=== PATIENT | male | born 1960 | race Caucasian/White ===

== ENCOUNTER 2018-10-15 12:30 | Day surgery (SDC) | payer MEDICARE ==
[~2018-10-15] VITALS: Ht 208.3 cm; Wt 106.0 kg
[2018-10-15] VITALS (8 sets, daily range): BP systolic 91–133; BP diastolic 61–94; PULSE 85–94; TEMP 98.1
[2018-10-15] MEDS ORDERED: ULTRAM 50MG TAB50 MG PO (13:07)
[2018-10-15] MEDS ORDERED: JANUMXR100-1000 PO (13:08)
[2018-10-15] MEDS ORDERED: CLEOCIN HC150 MG/CAP PO (13:10)
[2018-10-15] MEDS ORDERED: RIFADIN300 MG PO (13:11)
[2018-10-15] MEDS ORDERED: LYRICA200 MG PO (13:12)
[2018-10-15] MEDS ORDERED: NORVASC2.5 MG PO (13:13)
[2018-10-15 13:17] LABS: CALCIUM 9.5 mg/dL (8.4-10.2); CREATININE, serum 0.74 (0.66-1.25)
[2018-10-15] MEDS ORDERED: CRESTOR20 MG PO (13:17)
[2018-10-15] MEDS ORDERED: GLUCOTROL10 MG PO (13:17)
[2018-10-15] MEDS ORDERED: ASPIRIN E.C. 8181 MG PO (13:21)
[2018-10-15 13:22] LABS: PROTHROMBIN TIME 12.2 SECONDS (9.7-12.8)
--- NOTE | 2018-10-15 14:06 | NUR ---
SEE MERGE DOCUMENTATION FOR MEDICATION ADMINISTRATION TIMES AND INTRA/POST PROCEDURE SEDATION ASSESSMENTS. PT REQUESTS NO SEDATION FOR PROCEDURE; MD AWARE.
--- NOTE | 2018-10-15 14:25 | NUR ---
Pt baseline SpO2 readings 86-89% on RA. Pt with hx of COPD. MD notified; ok with saturations and request pt remain on RA for RHC. Pt showing no s/sx of distress; will continue to monitor.
[2018-10-15] MEDS ORDERED: LASIX 20MG TABL20 MG PO (15:07)
--- NOTE | 2018-10-15 15:20 | NUR ---
pt arrived via bed from labor relations officer to eu 15, pt is awake and alert, no sedation given, no c/o pain, pt is slightly anxious states is ready to go home, reviewed activity with pt and Dr orders on bedrest, keeping right leg straight, small pressure dressing over right vein groin site, area is soft, no signs of bleeding, call light in reach, takes sips of water. 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
[2018-10-15 15:23] LABS: HEMATOCRIT 54.5 % (42.0-52.0); HEMOGLOBIN 17.6 g/dl (13.5-18.0); MEAN CELL VOLUME 91 fl (80.0-100.0); MEAN CORPUSCULAR HEMOGLOBIN 30 pg (27.0-31.0); MEAN CORPUSCULAR HGB CONC 32 g/dl (33.0-37.0); RED BLOOD COUNT 5.96 M/mm3 (4.20-5.60)
[2018-10-15 15:24] LABS: MEAN PLATELET VOLUME 11.8 fl (7.4-10.4); PLATELET COUNT 190 K/mm3 (130-400)
--- NOTE | 2018-10-15 16:00 | NUR ---
Dr Pugh into see pt, brought disk of procedure and results of procedure for pt to take to [facility] when he gets his referral. pt ordered lunch. groin site remains the same, soft no signs of bleeding
--- NOTE | 2018-10-15 16:30 | NUR ---
pt sat on side of bed, tolerated well, using b/r in room, pt con't to be up in room, then sat on side of bed, is restless at times and states is eager to go home and need to smoke, family is coming for pt at discharge
--- NOTE | 2018-10-15 17:12 | NUR ---
reviewed discharge inst. with pt on appt made in October, also new med of lasix to be picked up, pt states has been on lasix before. reviewed activity with pt on groin site and on radial site, can shower tomorrow. also has disk and report from Dr Pugh
--- NOTE | 2018-10-15 17:45 | NUR ---
pt took off monitoring equipment. up in room, States is not coming to get him because she is sick and running a fever, Dr Álvarez called on pt driving and stated it is OK due to the pt had no sedation. Released air, 3cc, waited 5 min. released another 3cc, waited 5 min, then band taken off with no bleeding, area dressed with 2x2, tegrederm and coban, pt instructed to shower tomorrow and take off small pressure dressing then, iv d'cd intact
--- NOTE | 2018-10-15 18:00 | NUR ---
Pt up in room dressed, walked pt to car with discharge papers
== END 2018-10-15 18:00 | disposition home or self-care (01) ==
LOC: COL.CAR 12:30
PROVIDERS: Internal Medicine Cardiovascular Disease
DX: I25.10 Atherosclerotic heart disease of native coronary artery without angina pectoris (principal); E66.9 Obesity, unspecified; I10 Essential (primary) hypertension; E78.5 Hyperlipidemia, unspecified; J44.9 Chronic obstructive pulmonary disease, unspecified; I27.20 Pulmonary hypertension, unspecified; F17.210 Nicotine dependence, cigarettes, uncomplicated; Z79.82 Long term (current) use of aspirin; Z88.2 Allergy status to sulfonamides
CPT/HCPCS: J1644; Q9967

== ENCOUNTER → 2018-12-31 | Outpatient (CLI) | payer BC ==
[~2018-12-31] MED LIST: ASPIRIN E.C. 8181 MG PO; CLEOCIN HC150 MG/CAP PO; CRESTOR20 MG PO; GLUCOTROL10 MG PO; JANUMXR100-1000 PO; LASIX 20MG TABL20 MG PO; LYRICA200 MG PO; NORVASC2.5 MG PO; RIFADIN300 MG PO; ULTRAM 50MG TAB50 MG PO
[2018-12-31 18:05] LABS: MEAN CELL VOLUME 94 fl (80.0-100.0); MEAN CORPUSCULAR HGB CONC 34 g/dl (33.0-37.0); MEAN PLATELET VOLUME 10.7 fl (7.4-10.4); PLATELET COUNT 225 K/mm3 (130-400); RED BLOOD COUNT 5.83 M/mm3 (4.20-5.60); REDCELL DISTRIBUTION WIDTH-CV 16.6 % (11.5-14.5)
[2018-12-31 18:12] LABS: HEMATOCRIT 54.5 % (42.0-52.0); HEMOGLOBIN 18.6 g/dl (13.5-18.0); MEAN CORPUSCULAR HEMOGLOBIN 32 pg (27.0-31.0)
[2018-12-31 18:13] LABS: ALBUMIN 4.4 gm/dL (3.5-5.0); BILIRUBIN,TOTAL 0.4 mg/dL (0.0-1.0); CALCIUM 9.5 mg/dL (8.4-10.2); CREATININE, serum 1.05 (0.66-1.25); POTASSIUM 4.9 mmol/L (3.4-5.0); TOTAL PROTEIN 7.7 gm/dL (6.4-8.2)
[2018-12-31 18:24] LABS: TROPONIN-I 0.013 ng/mL (0.000-0.035)
[2019-01-01 02:28] LABS: BASO # 0.1 (0.0-0.2); BASO % 0.8 % (0.0-2.0); EOS # 0.2 (0.0-0.7); EOS % 1.8 % (0-4.0); GRAN # 5.4 (1.4-6.5); GRAN % 61.7 % (42.2-75.2); LYMPH # 2.3 (1.2-3.4); LYMPH % 26.3 % (20.0-51.0); MONO # 0.8 (0.1-0.6); MONO % 8.9 % (1.7-9.3)
== END ==
LOC: COL.LAB 17:21
PROVIDERS: Family Medicine
DX: R07.89 Other chest pain (principal)

== ENCOUNTER 2019-07-22 18:12 | Emergency (ER) | payer BC ==
[~2019-07-22] VITALS: Ht 177.8 cm; Wt 106.8 kg
[2019-07-22 18:15] VITALS: TEMP 97.8
[2019-07-22 19:12] LABS: BASO # 0.1 (0.0-0.2); BASO % 0.7 % (0.0-2.0); EOS # 0.2 (0.0-0.7); EOS % 1.6 % (0-4.0); GRAN # 7.4 (1.4-6.5); GRAN % 69.2 % (42.2-75.2); HEMOGLOBIN 17.2 g/dl (13.5-18.0); LYMPH # 2.1 (1.2-3.4); LYMPH % 19.6 % (20.0-51.0); MEAN CELL VOLUME 93 fl (80.0-100.0); MEAN CORPUSCULAR HEMOGLOBIN 30 pg (27.0-31.0); MEAN CORPUSCULAR HGB CONC 33 g/dl (33.0-37.0); MEAN PLATELET VOLUME 11.2 fl (7.4-10.4); MONO # 0.9 (0.1-0.6); MONO % 8.3 % (1.7-9.3); PLATELET COUNT 220 K/mm3 (130-400); RED BLOOD COUNT 5.65 M/mm3 (4.20-5.60); REDCELL DISTRIBUTION WIDTH-CV 17.4 % (11.5-14.5)
[2019-07-22 19:13] LABS: HEMATOCRIT 52.6 % (42.0-52.0)
[2019-07-22 19:22] LABS: ALBUMIN 4.4 gm/dL (3.5-5.0); BILIRUBIN,TOTAL 0.8 mg/dL (0.0-1.0); CALCIUM 9.5 mg/dL (8.4-10.2); POTASSIUM 4.8 mmol/L (3.4-5.0); TOTAL PROTEIN 7.6 gm/dL (6.4-8.2)
[2019-07-22 20:15] VITALS: BP 102/78; PULSE 87
== END 2019-07-22 20:15 | disposition home or self-care (01) ==
LOC: COL.ER 18:12
PROVIDERS: Emergency Medicine
DX: K46.9 Unspecified abdominal hernia without obstruction or gangrene (principal); I10 Essential (primary) hypertension; E78.5 Hyperlipidemia, unspecified; J44.9 Chronic obstructive pulmonary disease, unspecified; E66.9 Obesity, unspecified; F17.210 Nicotine dependence, cigarettes, uncomplicated; Z95.9 Presence of cardiac and vascular implant and graft, unspecified; Z79.82 Long term (current) use of aspirin; Z79.84 Long term (current) use of oral hypoglycemic drugs
CPT/HCPCS: J7030; Q9967

== ENCOUNTER 2019-08-28 04:10 | Emergency (ER) | payer MEDICARE ==
[~2019-08-28] VITALS: Ht 177.8 cm; Wt 104.5 kg
[2019-08-28 04:21] VITALS: TEMP 97.8
[2019-08-28] MEDS ORDERED: RANEXA 500MG T500 MG PO (04:32)
[2019-08-28 04:35] LABS: ARTERIAL BLD GAS O2 SATURATION 94.6 % (92-100); ARTERIAL BLD GAS TCO2 CT 25.1; ARTERIAL BLOOD GAS BASE EXCESS -1.8 (-2-2); ARTERIAL BLOOD GAS HCO3 23.8 meq/L (22-26); ARTERIAL BLOOD GAS PCO2 43.5 mmHg (35-45); ARTERIAL BLOOD GAS pH 7.36 (7.35-7.45)
[2019-08-28 05:03] LABS: BASO # 0.1 (0.0-0.2); BASO % 0.4 % (0.0-2.0); EOS # 0.1 (0.0-0.7); EOS % 0.7 % (0-4.0); GRAN # 12.4 (1.4-6.5); GRAN % 79.9 % (42.2-75.2); HEMATOCRIT 49.6 % (42.0-52.0); LYMPH # 1.5 (1.2-3.4); LYMPH % 9.6 % (20.0-51.0); MEAN CELL VOLUME 93 fl (80.0-100.0); MEAN CORPUSCULAR HEMOGLOBIN 30 pg (27.0-31.0); MEAN CORPUSCULAR HGB CONC 32 g/dl (33.0-37.0); MEAN PLATELET VOLUME 11.7 fl (7.4-10.4); MONO # 1.3 (0.1-0.6); MONO % 8.4 % (1.7-9.3); PLATELET COUNT 203 K/mm3 (130-400); RED BLOOD COUNT 5.33 M/mm3 (4.20-5.60); REDCELL DISTRIBUTION WIDTH-CV 16.8 % (11.5-14.5)
[2019-08-28 05:10] LABS: ALANINE AMINOTRANSFERASE 24 U/L (4-49); ALBUMIN 3.9 gm/dL (3.5-5.0); ALKALINE PHOSPHATASE 79 U/L (50-136); ANION GAP 7 mmol/L (7-16); AST,SGOT 32 U/L (15-37); BILIRUBIN,TOTAL 0.8 mg/dL (0.0-1.0); BLOOD UREA NITROGEN 15 mg/dL (9-20); CALCIUM 10.3 mg/dL (8.4-10.2); CARBON DIOXIDE 28 mmol/L (22-30); CHLORIDE 96 mmol/L (98-107); CREATININE, serum 1.11 (0.66-1.25); GLUCOSE 147 mg/dL (74-106); POTASSIUM 4.8 mmol/L (3.4-5.0); SODIUM 131 mmol/L (137-145); TOTAL PROTEIN 6.9 gm/dL (6.4-8.2)
[2019-08-28 05:27] LABS: TROPONIN-I < 0.012 ng/mL (0.000-0.035)
[2019-08-28] MEDS ORDERED: PREDNISONE20 MG PO (07:35)
[2019-08-28] MEDS ORDERED: DOXYCYCLINE HY100 MG PO (07:35)
[2019-08-28 08:50] VITALS: BP 110/64; PULSE 74
== END 2019-08-28 08:50 | disposition home or self-care (01) ==
LOC: COL.ER 04:10
PROVIDERS: Emergency Medicine
DX: R07.89 Other chest pain (principal); R05 Cough; R06.02 Shortness of breath; E66.9 Obesity, unspecified; I10 Essential (primary) hypertension; E78.5 Hyperlipidemia, unspecified; R60.0 Localized edema; I50.9 Heart failure, unspecified; I25.10 Atherosclerotic heart disease of native coronary artery without angina pectoris; M79.89 Other specified soft tissue disorders; Z68.33 Body mass index [BMI] 33.0-33.9, adult; Z79.84 Long term (current) use of oral hypoglycemic drugs; Z79.82 Long term (current) use of aspirin; Z88.2 Allergy status to sulfonamides
CPT/HCPCS: J2270; J7512; Q9967

== ENCOUNTER 2019-08-29 13:31 | Outpatient (RCR) | payer MEDICARE ==
[~2019-08-29 13:31] MED LIST changes: +DOXYCYCLINE HY100 MG PO; +PREDNISONE20 MG PO; +RANEXA 500MG T500 MG PO
[2019-09-19] MEDS ORDERED: PROAIR HFA0.09 MG/AC IH (00:35)
[2019-09-19] MEDS ORDERED: ANORO IH (00:37)
[2019-09-19] MEDS ORDERED: GLUCOPHAGE1000 MG PO (00:42)
[2019-09-19] MEDS ORDERED: TOPROL XL 25MG25 MG PO (00:44)
[2019-09-30] MEDS ORDERED: LASIX 40MG TABL40 MG PO (22:24)
[2019-09-30] MEDS ORDERED: GLUCOPHAGE500 MG/TAB PO (22:30)
== END 2019-09-26 06:44 | disposition still patient (30) ==
LOC: COL.CAR 13:31
DX: Z48.812 Encounter for surgical aftercare following surgery on the circulatory system (principal); Z98.61 Coronary angioplasty status; I25.10 Atherosclerotic heart disease of native coronary artery without angina pectoris

== ENCOUNTER → 2019-09-16 | Outpatient (CLI) | payer MEDICARE ==
[~2019-09-16] MED LIST changes: +ANORO IH; +GLUCOPHAGE1000 MG PO; +PROAIR HFA0.09 MG/AC IH; +TOPROL XL 25MG25 MG PO
== END ==
LOC: ZCOL.LAB 16:13
DX: J96.01 Acute respiratory failure with hypoxia (principal)

== ENCOUNTER → 2019-09-17 | Outpatient (CLI) | payer MEDICARE | LOC: ZCOL.LAB 10:52 | DX: R06.00 Dyspnea, unspecified (principal) ==

== ENCOUNTER 2021-09-09 19:28 | Emergency (ER) | payer MEDICARE ==
[~2021-09-09] VITALS: Ht 175.3 cm; Wt 90.9 kg
[~2021-09-09 19:28] MED LIST changes: +ALDACTONE 25MG25 M1 PO; +ELIQUIS 2.5 PO; +GLUCOPHAGE500 MG/TAB PO; +HABITROL TD; +ISORDIL 20MG20 M1 PO; +K-DUR20 MEQ PO; +LANOXIN 0.120.125 MG PO; +LASIX 40MG TABL40 MG PO; +LOPRESSOR 550 MG/TAB PO; +MEN'S ONE DAIL1 EACH PO; +MOTRIN 200200 MG/TAB; +NICODERM C21 MG/PATC TD; +PACERONE200 MG PO
[2021-09-09 19:36] VITALS: TEMP 97.5
[2021-09-09 20:04] LABS: BASO # 0.1 K/mm3 (0.0-0.2); BASO % 0.8 % (0.0-2.0); EOS # 0.3 K/mm3 (0.0-0.7); EOS % 2.5 % (0.0-4.0); GRAN # 6.9 K/mm3 (1.4-6.5); GRAN % 67.2 % (42.2-75.2); LYMPH # 2.1 K/mm3 (1.2-3.4); LYMPH % 20.8 % (20.0-51.0); MEAN CELL VOLUME 96 fl (80.0-100.0); MEAN CORPUSCULAR HGB CONC 35 g/dl (33.0-37.0); MEAN PLATELET VOLUME 10.9 fl (7.4-10.4); MONO # 0.8 K/mm3 (0.1-0.6); MONO % 8.1 % (1.7-9.3); PLATELET COUNT 215 K/mm3 (130-400); RED BLOOD COUNT 5.63 M/mm3 (4.20-5.60); REDCELL DISTRIBUTION WIDTH-CV 13.2 % (11.5-14.5)
[2021-09-09 20:06] LABS: HEMATOCRIT 54.2 % (42.0-52.0); MEAN CORPUSCULAR HEMOGLOBIN 34 pg (27-31)
[2021-09-09 20:22] LABS: BILIRUBIN,TOTAL 0.6 mg/dL (0.2-1.2); C-REACTIVE PROTEIN 0.41 mg/dL (0.00-0.50); CREATININE, serum 1.26 mg/dL (0.72-1.25); POTASSIUM 4.5 mmol/L (3.5-4.5); TOTAL PROTEIN 7.6 gm/dL (6.2-8.1)
[2021-09-09] MEDS ORDERED: TRELEGY ELLIPT1 EACH (20:25)
[2021-09-09] MEDS ORDERED: RYBELSUS7 MG (20:26)
[2021-09-09] MEDS ORDERED: JANUMXR100-1000 (20:27)
[2021-09-09] MEDS ORDERED: ELIQUIS 2.5 (20:28)
[2021-09-09] MEDS ORDERED: LASIX 40MG TABL40 MG (20:30)
[2021-09-09] MEDS ORDERED: LYRICA200 MG (20:33)
[2021-09-09] MEDS ORDERED: ULTRAM ER100 MG (20:35)
[2021-09-09] MEDS ORDERED: LIPITOR 40MG TA40 MG (20:37)
[2021-09-09 22:07] VITALS: BP 115/81; PULSE 77
== END 2021-09-09 22:16 | disposition home or self-care (01) ==
LOC: COL.ER 19:28
PROVIDERS: Emergency Medicine
DX: K80.20 Calculus of gallbladder without cholecystitis without obstruction (principal); E11.40 Type 2 diabetes mellitus with diabetic neuropathy, unspecified; F17.210 Nicotine dependence, cigarettes, uncomplicated; Z28.310 Unvaccinated for COVID-19
CPT/HCPCS: J7030; Q9967

== ENCOUNTER → 2023-05-29 | Outpatient (CLI) | payer MEDICARE ==
[~2023-05-29] MED LIST changes: +CEFTIN500 MG PO; +DALIRESP500 MCG PO; +ELIQUIS 5MG PO; +FLONASE NASAL S16 GM NS; +JANUMXR100-1000; +LASIX 40MG TABL40 MG; +LIPITOR 40MG TA40 MG; +LYRICA200 MG; -MEN'S ONE DAIL1 EACH PO; +QUALITY CHOICE1 T22 PO; +RYBELSUS7 MG; +TRELEGY ELLIPT1 EACH; +ZITHROMAX TRI-500 MG PO
== END ==
LOC: COL.RAD 09:59
DX: Z12.2 Encounter for screening for malignant neoplasm of respiratory organs (principal); Z87.891 Personal history of nicotine dependence

== ENCOUNTER 2023-07-29 19:41 | Emergency (ER) | payer MEDICARE ==
[~2023-07-29] VITALS: Ht 177.8 cm; Wt 86.4 kg
[2023-07-29 19:46] VITALS: BP 119/77; PULSE 111; TEMP 98.1
== END 2023-07-29 21:30 | disposition home or self-care (01) ==
LOC: COL.ER 19:41
DX: I83.892 Varicose veins of left lower extremity with other complications (principal); Z79.01 Long term (current) use of anticoagulants

== ENCOUNTER 2023-11-25 06:29 | Emergency (ER) | payer MEDICARE ==
[~2023-11-25] VITALS: Ht 177.8 cm; Wt 80.5 kg
[2023-11-25 06:29] VITALS: TEMP 98
[2023-11-25 07:15] LABS: BASO # 0.1 K/mm3 (0.0-0.2); BASO % 0.9 % (0.0-2.0); EOS # 0.2 K/mm3 (0.0-0.7); EOS % 2.7 % (0.0-4.0); GRAN # 5.8 K/mm3 (1.4-6.5); GRAN % 66.1 % (42.2-75.2); HEMATOCRIT 46.9 % (42.0-52.0); HEMOGLOBIN 16.1 g/dl (13.5-18.0); LYMPH % 22.7 % (20.0-51.0); MEAN CELL VOLUME 97 fl (80.0-100.0); MEAN CORPUSCULAR HEMOGLOBIN 33 pg (27-31); MEAN CORPUSCULAR HGB CONC 34 g/dl (33.0-37.0); MEAN PLATELET VOLUME 11.2 fl (7.4-10.4); MONO # 0.6 K/mm3 (0.1-0.6); PLATELET COUNT 269 K/mm3 (130-400); RED BLOOD COUNT 4.84 M/mm3 (4.20-5.60); REDCELL DISTRIBUTION WIDTH-CV 13.7 % (11.5-14.5)
[2023-11-25 07:27] LABS: ALBUMIN 3.5 g/dL (3.4-4.8); BILIRUBIN,TOTAL 0.4 mg/dL (0.2-1.2); CALCIUM 9.8 mg/dL (8.4-10.2); CREATININE, serum 1.16 mg/dL (0.72-1.25); MAGNESIUM 1.9 mg/dL (1.6-2.6); POTASSIUM 4.5 mEq/L (3.5-4.5); TOTAL PROTEIN 7.6 g/dl (6.2-8.1)
[2023-11-25 07:33] LABS: TROPONIN-I 0.017 ng/mL (0.00-0.033)
[2023-11-25 07:55] VITALS: BP 116/73; PULSE 72
== END 2023-11-25 08:00 | disposition home or self-care (01) ==
LOC: COL.ER 06:29
PROVIDERS: Emergency Medicine
DX: R07.89 Other chest pain (principal); F17.200 Nicotine dependence, unspecified, uncomplicated